=== PATIENT | female | born 1985 | race Caucasian/White ===

== ENCOUNTER 2025-02-17 08:18 | Emergency (ER) | payer SELFPAY ==
[2025-02-17 09:07] VITALS: BP 128/75; PULSE 58; RESP 20; TEMP 37; O2SAT 98; BMI 29.9
[2025-02-17 10:24] LABS: Influenza A - CEPHEID Flu A NEGATIVE (NEGATIVE); Influenza B - CEPHEID Flu B NEGATIVE (NEGATIVE)
[2025-02-17 10:25] LABS: COVID-19 CEPHEID 4-PLEX PCR POSITIVE (Negative)
--- NOTE | 2025-02-17 10:36 | ED_ITS ---
HPI - URI/Sore Throat General Chief Complaint: Upper Respiratory Symptoms Stated Complaint: Needs Covid test, Respiratory issues Time Seen by Provider: 02/17/25 10:28 Mode of arrival: Ambulatory History of Present Illness HPI Narrative: Patient is a healthy 39-year-old female who presents today with upper respiratory like symptoms. She has cough which she says she gets pretty bad coughing spells when she starts. She has mild sore throat body aches. He has b een going on for the last couple of days. 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 She needs documentation for work Related Data Previous Rx's ?Medication ?Instructions ?Recorded albuterol sulfate 90 mcg/actuation 2 puff inhalation Q 4-6H PRN 02/17/25 aerosol inhaler shortness of breath or wheez ing #8.5 grams Allergies Allergy/AdvReac Type Severity Reaction Status Date / Time No Known Allergies Allergy Mild Verified 02/17/25 09:08 Patient History Social History Smoking Status: Current every day smoker Smoking Status: Current every day smoker Exam Initial Vital Signs Initial Vital Signs: Vital Signs Temperature 98.6 F 02/17/25 09:07 Pulse Rate 58 L 02/17/25 09:07 Respiratory Rate 20 02/17/25 09:07 Blood Pressure 128/75 02/17/25 09:07 Pulse Oximetry 98 02/17/25 09:07 Oxygen Delivery Method Room Air 02/17/25 09:07 GENERAL: Alert nontoxic appearing 39-year-old female and in no acute distress. HEENT: Head atraumatic,EOMI, pupils reactive, face symmetric, moist mucous membranes CARDIOVASCULAR: Regular rate and rhythm without murmurs, rubs or gallops. RESPIRATORY: Breath sounds equal bilaterally, no wheezes rales or rhonchi. EXTREMITIES: Normal range of motion, no clubbing or edema. Neurovascularly intact NEUROLOGICAL: Alert and oriented x4.Normal gait and speech. SKIN: Warm, dry, no laceration, no petechiae, no rashes or lesions. Course Orders Ordered: ED Orders 02/17/25 09:11 Covid-19 + FLU A/B + RSV - PCR Stat Vital Signs Vital signs: Vital Signs - 8 hr 02/17/25 09:07 02/17/25 11:07 Temperature 98.6 F 98.3 F Pulse Rate 58 L 56 L Respiratory Rate 20 18 Blood Pressure 128/75 127/72 Pulse Oximetry 98 98 Oxygen Delivery Method Room Air Room Air MDM - URI/Sore Throat Lab Data Labs: Lab Results 02/17/25 Range/Units 09:11 SARS-CoV-2 (PCR) Positive H (Negative) Influenza A (RT-PCR) Flu a negative (NEGATIVE) Influenza B (RT-PCR) Flu b negative (NEGATIVE) RSV (PCR) Negative (Negative) MDM Narrative Medical decision making narrative: Patient is a healthy 39-year-old female presenting today with upper respiratory like symptoms. Vitals are stable she is not hypoxic. COVID test is positive. Lung sounds are clear no wheezing or respiratory distress. At this time no antibiotics no need for further workup supportive care only Discharge Plan Departure Patient Disposition: Home Clinical Impression: COVID-19 Instructions: DI for COVID-19 (Suspected or Confirmed ) Activity Restrictions/Additional Instructions: *You have been diagnosed with COVID-19 *What to do: At this time stay home hydrate and supportive care all *Continue to take medications as directed Albuterol 1-2 puffs every 4 hours if needed for coughing spells or shortness of Tylenol 1000 mg every 6 hours for fever or mild pain Motrin 600 mg every 6 hours for fever or mild pain *Follow up with your primary care provider in 2-3 days or call [phone] *Return to ER if you should have increased shortness of breath not tolerating fluids weakness or any new, worsening or concerning symptoms Prescriptions: New albuterol sulfate 90 mcg/actuation HFA aerosol inhaler 2 puff INHALATION Q4-6H PRN (Reason: shortness of breath or wheezing) Qty: 8.5 0RF Stand Alone Forms: Patient Portal/API
[2025-02-17 11:07] VITALS: BP 127/72; PULSE 56; RESP 18; TEMP 36.8; O2SAT 98
== END 2025-02-17 11:00 | disposition home or self-care (01) ==
PROVIDERS: Emergency Provider Emergency Medicine
DX: U07.1 COVID-19 (principal)
CPT/HCPCS: 87637; 99281; 99282

== ENCOUNTER 2025-03-07 13:00 | Emergency (ER) | payer SELFPAY ==
[2025-03-07 13:29] VITALS: BP 138/79; PULSE 74; RESP 16; TEMP 36.9; O2SAT 100; BMI 29.1
== END 2025-03-07 14:00 | disposition left against medical advice (07) ==
PROVIDERS: Emergency Provider Emergency Medicine
CPT/HCPCS: 99281